=== PATIENT | female | born 1985 | race Caucasian/White ===

== ENCOUNTER 2020-06-27 12:45 | Inpatient (IN) ==
[2020-06-27] MEDS ORDERED: LORazepam 1 MG TAB PO STA (13:07)
--- NOTE | 2020-06-27 13:20 | Emergency Department Note ---
Impression & Plan Depression with suicidal ideation, Drug abuse, Edema ED Provider Note NAME: KANDICE BOOTHE AGE: 35 SEX: F : 1985 ARRIVES VIA: Police [employer] INFORMANT: Patient, the police ED PROVIDER(S): Justin Campuzano DO CHIEF COMPLAINT: Anxiety HPI: The patient is a 35-year-old female who presented to the emergency department with police for mental health evaluation. According to the police the patient had an overdose of opiates last evening requiring Narcan for resuscitation. On scene the patient admitted to some suicidal ideation but ultimately was able to refer use transport after evaluation by EMS. The patient presents back to the emergency department today after further details emerged about what occurred last evening. At this time the patient states she has significant anxiety and depression. She states that she did have suicidal ideation but no longer has suicidal ideation. She states that she is more margarita rned because she has been having intermittent episodes of fever as well as edema in her hands and feet. The patient states that she is not . She denies having any chest pain or cough. She states that she does not have a history of IV drug abuse ever and normally would snort medications in order to obtain a high. She denies having any recent traveling. The patient denies having any chest pain. The patient denies have any recent evaluation by her primary care physician. She was seen in our facility for the intermittent fevers and no specific diagnosis was made. ROS: See above HPI for pertinent positives & negatives. A total of 10 systems reviewed and were otherwise negative. PAST MEDICAL HISTORY: See Below PAST SURGICAL HISTORY: See Below FAMILY HISTORY: See Below SOCIAL HISTORY: See Below HOME MEDICATIONS: See Below ALLERGIES: See Below VITALS: See Below PHYSICAL EXAMINATION: GENERAL: The patient is awake and alert. She is somewhat anxious and guarded appearing. EYES: The conjunctivae are clear. The pupils are round and reactive. EARS, NOSE, MOUTH AND THROAT: The nose is without any evidence of any deformity. NECK: The neck is nontender and supple. RESPIRATORY: Normal respiratory effort is noted there is no evidence of wheezing rhonchi or rales CARDIOVASCULAR: Regular rate and rhythm noted there no murmurs rubs or gallops normal S1 normal S2. GASTROINTESTINAL: The abdomen is soft. Abdomen is nontender. MUSCULOSKELETAL/EXTREMITIES: There is no evidence of gross deformity full range of motion is noted in the hips and shoulders. SKIN: There is no obvious evidence of any rash. Trace pedal edema was noted. NEUROLOGIC: Patient is awake alert and oriented x3 strength is symmetric patellar reflexes are 2+ bilaterally PSYCH: The patient makes good eye contact for most the evaluation. Currently she is denying any suicidal homicidal ideation. She seems somewhat guarded. MEDICAL DECISION MAKING: The patient is a 35-year-old female who presented to the emergency department by police for mental health evaluation. The patient does have a history of drug abuse in the past. She is currently taking Suboxone. She had an episode last evening where she overdosed and was revived using Narcan. The patient at that time refused transport but it became known that the patient was actually having suicidal ideation. She returns to the emergency department today for mental health evaluation. She also complained of some edema. I discussed the patient's laboratory and radiographic studies with her. Ultimately she was medically cleared in the emergency department. She was evaluated by the mental health shoe caser. She was evaluated by 3 S. and was felt to be a good candidate for 201 admission. I did review the 302 petition. Triage Nursing notes reviewed. Prior medical records reviewed Vital Signs: reviewed and remarkable for elevated blood pressure. Differential diagnosis: Mood disorder, infection, hypoglycemia, electrolyte abnormalities, cardiac sources, intracerebral event, toxicologic, trauma, neurologic, as well as other pathologies. ER treatment provided: See below Diagnostics interpreted by me: ECG: EKG was obtained in the emergency department. My interpretation is normal sinus rhythm at 84 bpm. There was no ectopy. There was no acute ST segment abnormalities noted. This was compared to a tracing from May 232020. No significant changes were noted. Laboratory studies: As stated above and show below. Imaging studies: See below Consultation(s): none Past Med/Surg History Medical History Depression with anxiety No chronic diseases present Surgical History Hx of section Social History Smoking Status: Current every day smoker Tobacco Type: Cigarettes Feels Safe at Home: Yes Allergies Allergies Allergy/AdvReac Type Severity Reaction Status Date / Time No Known Allergies Allergy Verified 06/27/20 13:33 Home Meds Home Medications Medication Instructions Recorded Confirmed Suboxone 8 mg BID 06/27/20 06/27/20 Results & Data (ED) Vital Signs Vital Signs - 24 hr 06/27/20 12:58 06/27/20 14:22 06/27/20 15:30 Temperature 37.1 C Temperature Source Oral Pulse Rate 102 H Pulse Rate [Left Finger] 92 H 84 Respiratory Rate 20 18 18 Blood Pressure 157/90 H Blood Pressure [Left Arm] 148/75 H 131/71 Blood Pressure Mean 112 Blood Pressure Mean [Left Arm] 99 91 Blood Pressure Position [Left Arm] Lying Pulse Oximetry 100 98 98 Oxygen Delivery Method Room Air Room Air Nasal Cannula Room Air Nasal Cannula Home Medications Current Medication List: was personally reviewed by me Laboratory Data Attestation: I reviewed the patient's lab results. Result diagrams: 06/27/20 14:29 06/27/20 14:29 Lab Results 06/27/20 06/27/20 06/27/20 Range/Units 14:21 14:21 14:29 WBC (4.8-10.8) K/uL RBC (4.2-5.4) M/uL Hgb (12.0-16.0) g/dL Hct (37-47) % MCV (80-100) fL MCH (25-34) pg MCHC (32-36) g/dL RDW Std Deviation (36.4-46.3) fL RDW Coeff of Mason (11.5-14.5) % Plt Count (130-400) K/uL MPV (7.4-10.4) fL Immature Gran % (Auto) % Neut % (Auto) % Lymph % (Auto) % [place] % (Auto) % Eos % (Auto) % Baso % (Auto) % Neut # (Auto) (1.4-6.5) K/uL Lymph # (Auto) (1.2-3.4) K/uL [place] # (Auto) (0.11-0.59) K/uL Eos # (Auto) (0-0.5) K/uL Baso # (Auto) (0-0.2) K/uL Immature Gran # (Auto) (0.00-0.02) K/uL Sodium 139 (136-145) mmol/L Potassium 3.9 (3.5-5.1) mmol/L Chloride 107 (98-107) mmol/L Carbon Dioxide 27 (21-32) mmol/L Anion Gap 5.0 (3-11) BUN 9 (7-18) mg/dl Creatinine 0.82 (0.6-1.2) mg/dl Est Cr Clr Drug Dosing 92.9 ml/min Est GFR ( Amer) 108.2 Est GFR (Non-Af Amer) 93.4 BUN/Creatinine Ratio 10.6 (10-20) Glucose 82 (70-99) mg/dl Calcium 9.2 (8.5-10.1) mg/dl Total Bilirubin 0.3 (0.2-1) mg/dl AST 22 (15-37) U/L ALT 28 (12-78) U/L Alkaline Phosphatase 66 (45-117) U/L Troponin I < 0.015 (0-0.045) ng/ml Total Protein 7.7 (6.4-8.2) gm/dl Albumin 3.9 (3.4-5.0) gm/dl Globulin 3.8 (2.5-4.0) gm/dl Albumin/Globulin Ratio 1.0 (0.9-2) TSH 0.597 (0.300-4.500) uIu/ml HCG, Qual (Negative) Urine Color Yellow Urine Appearance Clear (Clear) Urine pH 7.0 (4.5-7.5) Ur Specific [place] 1.017 (1.000-1.030) Urine Protein Negative (Negative) Urine Glucose (UA) Negative (Negative) Urine Ketones Trace H (Negative) Urine Blood 1+ H (Negative) Urine Nitrite Negative (Negative) Urine Bilirubin Negative (Negative) Urine Urobilinogen Negative (Negative) Ur Leukocyte Esterase Negative (Negative) Urine WBC (Auto) 1-5 (0-5) /hpf Urine RBC (Auto) 10-30 H (0-4) /hpf U Hyaline Cast (Auto) 1-5 (0-5) /lpf U Epithel Cells (Auto) 20-30 H (0-5) /lpf Urine Bacteria (Auto) Negative (Negative) Salicylates (2.8-20) mg/dl Urine Opiates Screen Pos H (Neg) Ur Methadone, Qual Neg (Neg) Acetaminophen (10-30) ug/ml Urine Barbiturates Neg (Neg) Ur Phencyclidine (PCP) Neg (Neg) U Amphetamin/Meth Scrn Neg (Neg) MDMA (Ecstasy) Screen Neg (Neg) U Benzodiazepines Scrn Neg (Neg) Ur Cocaine Metabolite Pos H (Neg) U Marijuana (THC) Screen Neg (Neg) Ethyl Alcohol mg/dL (0-3) mg/dl COVID-19 Eval Order SARS-CoV-2, RNA, NAAT (NEGATIVE) 06/27/20 06/27/20 06/27/20 Range/Units 14:29 14:29 14:29 WBC 10.61 (4.8-10.8) K/uL RBC 4.31 (4.2-5.4) M/uL Hgb 13.0 (12.0-16.0) g/dL Hct 39.2 (37-47) % MCV 91.0 (80-100) fL MCH 30.2 (25-34) pg MCHC 33.2 (32-36) g/dL RDW Std Deviation 43.8 (36.4-46.3) fL RDW Coeff of Mason 13.2 (11.5-14.5) % Plt Count 304 (130-400) K/uL MPV 9.4 (7.4-10.4) fL Immature Gran % (Auto) 0.2 % Neut % (Auto) 64.6 % Lymph % (Auto) 23.6 % [place] % (Auto) 8.6 % Eos % (Auto) 2.6 % Baso % (Auto) 0.4 % Neut # (Auto) 6.86 H (1.4-6.5) K/uL Lymph # (Auto) 2.50 (1.2-3.4) K/uL [place] # (Auto) 0.91 H (0.11-0.59) K/uL Eos # (Auto) 0.28 (0-0.5) K/uL Baso # (Auto) 0.04 (0-0.2) K/uL Immature Gran # (Auto) 0.02 (0.00-0.02) K/uL Sodium (136-145) mmol/L Potassium (3.5-5.1) mmol/L Chloride (98-107) mmol/L Carbon Dioxide (21-32) mmol/L Anion Gap (3-11) BUN (7-18) mg/dl Creatinine (0.6-1.2) mg/dl Est Cr Clr Drug Dosing ml/min Est GFR ( Amer) Est GFR (Non-Af Amer) BUN/Creatinine Ratio (10-20) Glucose (70-99) mg/dl Calcium (8.5-10.1) mg/dl Total Bilirubin (0.2-1) mg/dl AST (15-37) U/L ALT (12-78) U/L Alkaline Phosphatase (45-117) U/L Troponin I (0-0.045) ng/ml Total Protein (6.4-8.2) gm/dl Albumin (3.4-5.0) gm/dl Globulin (2.5-4.0) gm/dl Albumin/Globulin Ratio (0.9-2) TSH (0.300-4.500) uIu/ml HCG, Qual Negative (Negative) Urine Color Urine Appearance (Clear) Urine pH (4.5-7.5) Ur Specific [place] (1.000-1.030) Urine Protein (Negative) Urine Glucose (UA) (Negative) Urine Ketones (Negative) Urine Blood (Negative) Urine Nitrite (Negative) Urine Bilirubin (Negative) Urine Urobilinogen (Negative) Ur Leukocyte Esterase (Negative) Urine WBC (Auto) (0-5) /hpf Urine RBC (Auto) (0-4) /hpf U Hyaline Cast (Auto) (0-5) /lpf U Epithel Cells (Auto) (0-5) /lpf Urine Bacteria (Auto) (Negative) Salicylates 2.8 (2.8-20) mg/dl Urine Opiates Screen (Neg) Ur Methadone, Qual (Neg) Acetaminophen < 2 L (10-30) ug/ml Urine Barbiturates (Neg) Ur Phencyclidine (PCP) (Neg) U Amphetamin/Meth Scrn (Neg) MDMA (Ecstasy) Screen (Neg) U Benzodiazepines Scrn (Neg) Ur Cocaine Metabolite (Neg) U Marijuana (THC) Screen (Neg) Ethyl Alcohol mg/dL (0-3) mg/dl COVID-19 Eval Order SARS-CoV-2, RNA, NAAT (NEGATIVE) 06/27/20 06/27/20 06/27/20 Range/Units 14:29 16:43 16:43 WBC (4.8-10.8) K/uL RBC (4.2-5.4) M/uL Hgb (12.0-16.0) g/dL Hct (37-47) % MCV (80-100) fL MCH (25-34) pg MCHC (32-36) g/dL RDW Std Deviation (36.4-46.3) fL RDW Coeff of Mason (11.5-14.5) % Plt Count (130-400) K/uL MPV (7.4-10.4) fL Immature Gran % (Auto) % Neut % (Auto) % Lymph % (Auto) % [place] % (Auto) % Eos % (Auto) % Baso % (Auto) % Neut # (Auto) (1.4-6.5) K/uL Lymph # (Auto) (1.2-3.4) K/uL [place] # (Auto) (0.11-0.59) K/uL Eos # (Auto) (0-0.5) K/uL Baso # (Auto) (0-0.2) K/uL Immature Gran # (Auto) (0.00-0.02) K/uL Sodium (136-145) mmol/L Potassium (3.5-5.1) mmol/L Chloride (98-107) mmol/L Carbon Dioxide (21-32) mmol/L Anion Gap (3-11) BUN (7-18) mg/dl Creatinine (0.6-1.2) mg/dl Est Cr Clr Drug Dosing ml/min Est GFR ( Amer) Est GFR (Non-Af Amer) BUN/Creatinine Ratio (10-20) Glucose (70-99) mg/dl Calcium (8.5-10.1) mg/dl Total Bilirubin (0.2-1) mg/dl AST (15-37) U/L ALT (12-78) U/L Alkaline Phosphatase (45-117) U/L Troponin I (0-0.045) ng/ml Total Protein (6.4-8.2) gm/dl Albumin (3.4-5.0) gm/dl Globulin (2.5-4.0) gm/dl Albumin/Globulin Ratio (0.9-2) TSH (0.300-4.500) uIu/ml HCG, Qual (Negative) Urine Color Urine Appearance (Clear) Urine pH (4.5-7.5) Ur Specific [place] (1.000-1.030) Urine Protein (Negative) Urine Glucose (UA) (Negative) Urine Ketones (Negative) Urine Blood (Negative) Urine Nitrite (Negative) Urine Bilirubin (Negative) Urine Urobilinogen (Negative) Ur Leukocyte Esterase (Negative) Urine WBC (Auto) (0-5) /hpf Urine RBC (Auto) (0-4) /hpf U Hyaline Cast (Auto) (0-5) /lpf U Epithel Cells (Auto) (0-5) /lpf Urine Bacteria (Auto) (Negative) Salicylates (2.8-20) mg/dl Urine Opiates Screen (Neg) Ur Methadone, Qual (Neg) Acetaminophen (10-30) ug/ml Urine Barbiturates (Neg) Ur Phencyclidine (PCP) (Neg) U Amphetamin/Meth Scrn (Neg) MDMA (Ecstasy) Screen (Neg) U Benzodiazepines Scrn (Neg) Ur Cocaine Metabolite (Neg) U Marijuana (THC) Screen (Neg) Ethyl Alcohol mg/dL < 3.0 (0-3) mg/dl COVID-19 Eval [facility] SARS-CoV-2, RNA, NAAT NEGATIVE (NEGATIVE) Administered Medications Discontinued Medications Acetaminophen (Acetaminophen 500 Mg Tab) 1,000 mg PO NOW STA Stop: 06/27/20 14:22 Last Admin: 06/27/20 14:25 Dose: 1,000 mg Documented by: [id number] Lorazepam (Lorazepam 1 Mg Tab) 1 mg PO NOW STA Stop: 06/27/20 13:08 Last Admin: 06/27/20 13:20 Dose: 1 mg Documented by: [id number] Imaging Data Radiologist's Impression: Patient: KANDICE BOOTHE Admit Date: 06/27/20 MR#: [id number] Address1: [address] [place] [address] Acct ID:[id number] Address2: Date: 1985 [facility] Zip: [place] [address] Age: 35 Location: ED Sex: F Room/Bed: Att Phy: Diagnosis: MHE Erika Phy: PCP,NO Service Date: 06/27/20 Fam Phy: Interpreting Phy: Hugo Gray Admit Phy: Ordering Phy: Justin Campuzano, DO cc: ~ XR chest 1V portable HISTORY: 35 years-old Female cleaarance screening study. No acute chest complaints reported. COMPARISON: Chest radiograph and CTA chest 05/23/2020 TECHNIQUE: Portable AP view of the chest FINDINGS: Cardiomediastinal and hilar silhouettes are within normal limits. No p neumothorax, pleural effusion or overt pulmonary edema. Mild bibasilar opacities are likely secondary to summation density from the patient's breasts. Bones appear normal. IMPRESSION: No acute process. ACT 112: Negative or not required by law. The above report was generated using voice recognition software. It may contain grammatical, syntax or spelling errors. Electronically signed by: Diego Gray M.D. 06/27/2020 1:30 PM Dictated: 06/27/20 1328 Transcribed: 06/27/20 1328 Discharge Plan Visit Data Chief Complaint: Mental Health Evaluation ED Provider: Justin Campuzano Discharge Problem: Depression with suicidal ideation, Drug abuse, Edema Prescriptions Prescriptions: No Action Suboxone tablet 8 mg BID RF: 0
--- NOTE | 2020-06-27 13:31 | XRay Report ---
XR chest 1V portable HISTORY: 35 years-[facility] No acute chest complaints reported. COMPARISON: Chest radiograph and CTA chest 05/23/2020 TECHNIQUE: Portable AP view of the chest FINDINGS: Cardiomediastinal and hilar silhouettes are within normal limits. No pneumothorax, pleural effusion o r overt pulmonary edema. Mild bibasilar opacities are likely secondary to summation density from the patient's breasts. Bones appear normal. IMPRESSION: No acute process. ACT 112: Negative or not required by law. The above report was generated using voice recognition software. It may contain grammatical, syntax o r spelling errors. Electronically signed by: Diego Gray M.D. 06/27/2020 1:30 PM
[2020-06-27] MEDS ORDERED: ACETAMINOPHEN 500 MG TAB PO STA (14:21)
[2020-06-27 14:34] LABS: Appearance Urine Clear (Clear); Bacteria Urine Automated Negative (Negative); Bilirubin Urine Negative (Negative); Blood Urine 1+ (Negative); Color Urine Yellow; Epithelial Cell Urine Auto 20-30 /lpf (0-5); Glucose Urine UA Negative (Negative); Ketones Urine Trace (Negative); Leukocyte Esterase Urine Negative (Negative); Nitrite Urine Negative (Negative); Protein Urine Negative (Negative); Specific Gravity Urine 1.017 (1.000-1.030); Urobilinogen Urine Negative (Negative)
[2020-06-27 14:47] LABS: Basophils # (auto) 0.04 K/uL (0-0.2); Basophils % (auto) 0.4 %; Eosinophils # (auto) 0.28 K/uL (0-0.5); Eosinophils % (auto) 2.6 %; Hematocrit (blood only) 39.2 % (37-47); Immature Granulocytes # (auto) 0.02 K/uL (0.00-0.02); Immature Granulocytes % (auto) 0.2 %; Lymphocytes % (auto) 23.6 %; Mean Corpuscular Hemoglobin 30.2 pg (25-34); Mean Corpuscular Hgb Conc 33.2 g/dL (32-36); Mean Platelet Volume 9.4 fL (7.4-10.4); Monocytes # (auto) 0.91 K/uL (0.11-0.59); Monocytes % (auto) 8.6 %; Neutrophils # (auto) 6.86 K/uL (1.4-6.5); Neutrophils % (auto) 64.6 %; Platelet Count 304 K/uL (130-400); RDW Coefficient of Variation 13.2 % (11.5-14.5); RDW Standard Deviation 43.8 fL (36.4-46.3); Red Blood Count 4.31 M/uL (4.2-5.4); White Blood Count 10.61 K/uL (4.8-10.8)
[2020-06-27 15:02] LABS: Alanine Aminotransferase 28 U/L (12-78); Albumin Level 3.9 gm/dl (3.4-5.0); Aspartate Aminotransferase 22 U/L (15-37); BUN Creatinine Ratio 10.6 (10-20); Blood Urea Nitrogen 9 mg/dl (7-18); Calcium 9.2 mg/dl (8.5-10.1); Carbon Dioxide 27 mmol/L (21-32); Chloride 107 mmol/L (98-107); Creatinine Clr Calc Pharmacy 92.9 ml/min; Est GFR (African American) 108.2; Est GFR (Non-African American) 93.4; Glucose 82 mg/dl (70-99); Potassium 3.9 mmol/L (3.5-5.1); Sodium 139 mmol/L (136-145)
[2020-06-27 15:11] LABS: Amphetamines+Metham, Urine Neg (Neg); Barbiturates, Urine Neg (Neg); Benzodiazepine, Urine Neg (Neg); Cocaine, Urine Pos (Neg); MDMA (Ecstacy), Urine Neg (Neg); Methadone, Urine Neg (Neg); Opiate, Urine Pos (Neg); Phencyclidine, Urine Neg (Neg)
[2020-06-27 15:12] LABS: Alkaline Phosphatase 66 U/L (45-117); Bilirubin,Total 0.3 mg/dl (0.2-1); Globulin 3.8 gm/dl (2.5-4.0); Thyroid Stimulating Hormone 0.597 uIu/ml (0.300-4.500); Total Protein 7.7 gm/dl (6.4-8.2); Troponin I < 0.015 ng/ml (0-0.045)
[2020-06-27 15:13] LABS: Pregnancy Test, Serum Negative (Negative)
[2020-06-27 15:38] LABS: Acetaminophen < 2 ug/ml (10-30); Salicylate 2.8 mg/dl (2.8-20)
[2020-06-27] MEDS ORDERED: ALUMINUM/MAGNESIUM SUSP 30 ML UDC PO PRN (18:23)
[2020-06-27] MEDS ORDERED: SODIUM CHLORIDE 0.65% NA SOLN 45 ML (OCEAN) PRN (18:23)
[2020-06-27] MEDS ORDERED: ACETAMINOPHEN 325 MG TAB PO PRN (18:23)
[2020-06-27] MEDS ORDERED: BISMUTH SUBSALICYLATE LIQD 236 ML PO PRN (18:23)
[2020-06-27] MEDS ORDERED: MAGNESIUM HYDROXIDE SUSP 30 ML UDC PO PRN (18:23)
[2020-06-27] MEDS ORDERED: cloNIDine HCL 0.1 MG TAB PO PRN (18:25)
[2020-06-27] MEDS ORDERED: DIPHENOXYLATE/ATROPINE 2.5/0.025MG TAB PO PRN (18:25)
[2020-06-27] MEDS ORDERED: IBUPROFEN 600 MG TAB PO STA (18:46)
[2020-06-27] MEDS: hydrOXYzine HCl 25 MG TAB PO PRN ×2 (19:38→20:59)
--- NOTE | 2020-06-27 22:30 | Electrocardiogram Report ---
Test Reason : Blood Pressure : / mmHG Vent. Rate : 084 BPM Atrial Rate : 084 BPM P-R Int : 136 ms QRS Dur : 084 ms QT Int : 380 ms P-R-T Axes : 061 061 047 degrees QTc Int : 449 ms Normal sinus rhythm Normal ECG When compared with ECG of 23-MAY-2020 12:03, No significant change was found Confirmed by Daniel Monroe ([id number]) on 06/27/2020 10:29:50 PM Referred By: REFERRED SELF Confirmed By:Daniel Monroe
--- NOTE | 2020-06-28 12:57 | History & Physical ---
Date of Service June 28, 2020 Impression / Recommendations Impression 35 yo female with a history of opiate dependence admit on 201 approximately 24 hours after an opiate OD, there are verying accounts as to what degree it was a suicidal gesture and although she has signed a 72 hr notice, she needs continued monitoring to establish history, restart suboxone safety, and safety plan which includes confirming CYS issues with regards to children. She was felt to be high risk given family history of suicide, substance use hx, and son's hearing on rather serious charges. (1) Depressive disorder: The patient was admitted to the [facility] ([facility]) on q15 min checks (behavioral with suicide precautions) for safety. The patient will participate in group, recreational, and milieu therapies and will be offered additional individual and family sessions as clinically appropriate. Additional history will need to be obtain re: her mood and functioning prior to OD. (2) Opiate dependence: reviewed with patient that Suboxone is generally restarted 36 hrs + following last use or with withdrawal symptoms after, often lower dose to ensure not precipitate withdrawal. Clonidine and lomotil prn. Denies symptoms at this time. Will start suboxone 4/1 mg tonight and advance to home dose after 2 doses as tolerated. dosing confirmed with PDMP ([place] provider). Inventory Assets Strengths: established with Mauro, period of sobriety of 2 1/2 years Needs: social work case manager, confirm therapy Risk Factors Assessment : Yes Do You Have Access To A Gun?: No Substance Use Disorders: Yes Family History of Suicide: Yes Smoker: Yes Protective Factors Assessment : No Responsible for Young Children: Yes Employed: No Stable Relationships: No Psychiatric History Identifying Data KANDICE BOOTHE is a 35-year-old F with a history of opiate dependence presents to ED on 302 warrant by police morning after an intentional heroin OD on 06/26/20. She was admitted 06/27/20 18:23 on a 201 voluntary commitment but has since signed a 72 hour notice. Chief Complaint "It was stupid, I don't need to be here, now get out". History of Present Illness Patient is rather uncooperative with history this am attributing it to poor sleep. She admits taking "a bunch" (using 5 bags) of heroin was intentional but denies she was suicidal prior or that it was a true suicide attempt. She states that she felt suicidal because "I messed up my sobriety". She also used cocaine with the "dope". Apparently 15 yo son was involved in notifying EMS and she declined to go for exam/with police followng Narcan. Apparently any suicidal statements made while intoxicated weren't considered immediate threat. She followed up with her case finisher the next day by phone and a 302 petition was initiated based on report of OD. ED contacted CYS last night. She states he has a hearing on 07/01 (sentencing for ?armed robbery). She states it's "ridiculous I have to deal with this now" but clearly also reviewed as a stressor. [place] [facility] [place] case finisher was apparently involved in finding emergency care for children. The patient has boyfriend who is 14 years senior who lives several hours away yet still refers to him as controlling. She restates that she only wanted to get seen for hand and feet swelling, unclear if following narcan, but is resolving. Past Psychiatric History Previous Psych History: patient uncooperative. Current Psychiatric Diagnosis: depression NOS Previous Psych Admissions: denied Do You Have Access To A Gun?: No Past Medication Trials: unable to obtain Allergies Allergy/AdvReac Type Severity Reaction Status Date / Time No Known Allergies Allergy Verified 06/27/20 13:33 Home Medications Medication Instructions Recorded Confirmed Type Suboxone 8 mg BID 06/27/20 06/27/20 History Family History Family History of: Anxiety and Suicide Completion Family Mental Health History Comment: grandmother completed suicide son has anxiety Alcohol History Hx of Alcohol Use Over the Past 12 Months: Yes (once or twice a week; one or 2 drinks) AUDIT Total Score: 3 Smoking Use Have You Smoked or Used Tobacco Products in the Last 30 Days: Yes tobacco type: cigarettes Smoking Status: Current every day smoker Smoking packs per day: 0.5 Substance History Hx of Prescription Med Misuse Over the Past 12 Months: No Hx of Over the Counter Med Misuse Over the Past 12 Months: No Hx of Inhalent Misuse Over the Past 12 Months: No Hx of Organic Substance Use Over the Past 12 Months: Yes Hx of Illegal Substances/Street Drug Use Over Past 12 Months: Yes Problems as a Result of Past Substance Use: Attempted Suicide Problems as a Result of Past Substance Use Comments: overdosed on Heroin 06/26; EMS gave Narcan Personal History Living Arrangements: Apartment Employment Status: Unknown Marital Status: Single Beliefs That Will Affect Care: None Patient History Medical History Depression with anxiety No chronic diseases present Surgical History Hx of section Social History Smoking Status: Current every day smoker Tobacco Type: Cigarettes Preferred Language: [place] Communication Ability: Effective Residential Installer Required: No Beliefs That Will Affect Care: None Feels Safe at Home: Yes Assistive Devices: None Review of Systems Review of Systems: All systems reviewed & are unremarkable except as noted in HPI & below Physical Exam Psychiatric: Orientation: alert and + guarded Apperance: + disheveled Eye Contact: + poor eye contact Motor Behavior: no abnormal motor movements Speech: normal rate/rhythm/volume of speech Affect: + irritable affect Mood: + irritable mood Thought Process: + concrete thought process Thought Content: reality based without delusions Suicidal Thoughts: denies suicidal thoughts Homicidal Thoughts: denies homicidal thoughts Hallucinations: no auditory hallucinations and no visual hallucinations Cognition: + attention not intact Insight: + poor insight Judgement: + poor judgement Vital Signs (Past 24 Hours): Last Vital Signs Temp 36.7 C 06/28/20 06:26 Pulse 63 06/28/20 06:26 Resp 18 06/28/20 06:26 BP 115/65 06/28/20 06:26 Pulse Ox 99 06/27/20 21:30 Exam Statement: A physical exam was performed in the ED by Dr. Campuzano for the p urposes of medical clearance. I accept that physical as correct and adequate for the purposes of the inpatient physical exam. Results & Data ([facility]) Laboratory Results Laboratory Results - last 24 hr 06/27/20 06/27/20 06/27/20 14:21 14:21 14:21 WBC RBC Hgb Hct MCV MCH MCHC RDW Std Deviation RDW Coeff of Mason Plt Count MPV Immature Gran % (Auto) Neut % (Auto) Lymph % (Auto) [place] % (Auto) Eos % (Auto) Baso % (Auto) Neut # (Auto) Lymph # (Auto) [place] # (Auto) Eos # (Auto) Baso # (Auto) Immature Gran # (Auto) Sodium Potassium Chloride Carbon Dioxide Anion Gap BUN Creatinine Est Cr Clr Drug Dosing Est GFR ( Amer) Est GFR (Non-Af Amer) BUN/Creatinine Ratio Glucose Calcium Total Bilirubin AST ALT Alkaline Phosphatase Troponin I Total Protein Albumin Globulin Albumin/Globulin Ratio TSH HCG, Qual Urine Color Yellow Urine Appearance Clear Urine pH 7.0 Ur Specific [place] 1.017 Urine Protein Negative Urine Glucose (UA) Negative Urine Ketones Trace H Urine Blood 1+ H Urine Nitrite Negative Urine Bilirubin Negative Urine Urobilinogen Negative Ur Leukocyte Esterase Negative Urine WBC (Auto) 1-5 Urine RBC (Auto) 10-30 H U Hyaline Cast (Auto) 1-5 U Epithel Cells (Auto) 20-30 H Urine Bacteria (Auto) Negative Salicylates Urine Opiates Screen Pos H U Codeine Confrm GC/MS Pending Ur Morphine (GC/MS) Pending Ur Hydrocodone (GC/MS) Pending Ur Norhydrocodone Pending Ur Noroxycodone Pending Urine Oxycodone (GC/MS) Pending U Oxymorphone GC/MS Pending Ur Methadone, Qual Neg Ur Hydromorphone (GC/MS) Pending Acetaminophen Urine Barbiturates Neg Ur Phencyclidine (PCP) Neg U Amphetamin/Meth Scrn Neg MDMA (Ecstasy) Screen Neg U Benzodiazepines Scrn Neg U Cocaine Confirm GC/MS Pending Ur Cocaine Metabolite Pos H U Marijuana (THC) Screen Neg Drug Screen Comment Pending Ethyl Alcohol mg/dL COVID-19 Eval Order SARS-CoV-2, RNA, NAAT 06/27/20 06/27/20 06/27/20 14:29 14:29 14:29 WBC 10.61 RBC 4.31 Hgb 13.0 Hct 39.2 MCV 91.0 MCH 30.2 MCHC 33.2 RDW Std Deviation 43.8 RDW Coeff of Mason 13.2 Plt Count 304 MPV 9.4 Immature Gran % (Auto) 0.2 Neut % (Auto) 64.6 Lymph % (Auto) 23.6 [place] % (Auto) 8.6 Eos % (Auto) 2.6 Baso % (Auto) 0.4 Neut # (Auto) 6.86 H Lymph # (Auto) 2.50 [place] # (Auto) 0.91 H Eos # (Auto) 0.28 Baso # (Auto) 0.04 Immature Gran # (Auto) 0.02 Sodium 139 Potassium 3.9 Chloride 107 Carbon Dioxide 27 Anion Gap 5.0 BUN 9 Creatinine 0.82 Est Cr Clr Drug Dosing 92.9 Est GFR ( Amer) 108.2 Est GFR (Non-Af Amer) 93.4 BUN/Creatinine Ratio 10.6 Glucose 82 Calcium 9.2 Total Bilirubin 0.3 AST 22 ALT 28 Alkaline Phosphatase 66 Troponin I < 0.015 Total Protein 7.7 Albumin 3.9 Globulin 3.8 Albumin/Globulin Ratio 1.0 TSH 0.597 HCG, Qual Negative Urine Color Urine Appearance Urine pH Ur Specific [place] Urine Protein Urine Glucose (UA) Urine Ketones Urine Blood Urine Nitrite Urine Bilirubin Urine Urobilinogen Ur Leukocyte Esterase Urine WBC (Auto) Urine RBC (Auto) U Hyaline Cast (Auto) U Epithel Cells (Auto) Urine Bacteria (Auto) Salicylates Urine Opiates Screen U Codeine Confrm GC/MS Ur Morphine (GC/MS) Ur Hydrocodone (GC/MS) Ur Norhydrocodone Ur Noroxycodone Urine Oxycodone (GC/MS) U Oxymorphone GC/MS Ur Methadone, Qual Ur Hydromorphone (GC/MS) Acetaminophen Urine Barbiturates Ur Phencyclidine (PCP) U Amphetamin/Meth Scrn MDMA (Ecstasy) Screen U Benzodiazepines Scrn U Cocaine Confirm GC/MS Ur Cocaine Metabolite U Marijuana (THC) Screen Drug Screen Comment Ethyl Alcohol mg/dL COVID-19 Eval Order SARS-CoV-2, RNA, NAAT 06/27/20 06/27/20 06/27/20 14:29 14:29 16:43 WBC RBC Hgb Hct MCV MCH MCHC RDW Std Deviation RDW Coeff of Mason Plt Count MPV Immature Gran % (Auto) Neut % (Auto) Lymph % (Auto) [place] % (Auto) Eos % (Auto) Baso % (Auto) Neut # (Auto) Lymph # (Auto) [place] # (Auto) Eos # (Auto) Baso # (Auto) Immature Gran # (Auto) Sodium Potassium Chloride Carbon Dioxide Anion Gap BUN Creatinine Est Cr Clr Drug Dosing Est GFR ( Amer) Est GFR (Non-Af Amer) BUN/Creatinine Ratio Glucose Calcium Total Bilirubin AST ALT Alkaline Phosphatase Troponin I Total Protein Albumin Globulin Albumin/Globulin Ratio TSH HCG, Qual Urine Color Urine Appearance Urine pH Ur Specific [place] Urine Protein Urine Glucose (UA) Urine Ketones Urine Blood Urine Nitrite Urine Bilirubin Urine Urobilinogen Ur Leukocyte Esterase Urine WBC (Auto) Urine RBC (Auto) U Hyaline Cast (Auto) U Epithel Cells (Auto) Urine Bacteria (Auto) Salicylates 2.8 Urine Opiates Screen U Codeine Confrm GC/MS Ur Morphine (GC/MS) Ur Hydrocodone (GC/MS) Ur Norhydrocodone Ur Noroxycodone Urine Oxycodone (GC/MS) U Oxymorphone GC/MS Ur Methadone, Qual Ur Hydromorphone (GC/MS) Acetaminophen < 2 L Urine Barbiturates Ur Phencyclidine (PCP) U Amphetamin/Meth Scrn MDMA (Ecstasy) Screen U Benzodiazepines Scrn U Cocaine Confirm GC/MS Ur Cocaine Metabolite U Marijuana (THC) Screen Drug Screen Comment Ethyl Alcohol mg/dL < 3.0 COVID-19 Eval [facility] SARS-CoV-2, RNA, NAAT 06/27/20 16:43 WBC RBC Hgb Hct MCV MCH MCHC RDW Std Deviation RDW Coeff of Mason Plt Count MPV Immature Gran % (Auto) Neut % (Auto) Lymph % (Auto) [place] % (Auto) Eos % (Auto) Baso % (Auto) Neut # (Auto) Lymph # (Auto) [place] # (Auto) Eos # (Auto) Baso # (Auto) Immature Gran # (Auto) Sodium Potassium Chloride Carbon Dioxide Anion Gap BUN Creatinine Est Cr Clr Drug Dosing Est GFR ( Amer) Est GFR (Non-Af Amer) BUN/Creatinine Ratio Glucose Calcium Total Bilirubin AST ALT Alkaline Phosphatase Troponin I Total Protein Albumin Globulin Albumin/Globulin Ratio TSH HCG, Qual Urine Color Urine Appearance Urine pH Ur Specific [place] Urine Protein Urine Glucose (UA) Urine Ketones Urine Blood Urine Nitrite Urine Bilirubin Urine Urobilinogen Ur Leukocyte Esterase Urine WBC (Auto) Urine RBC (Auto) U Hyaline Cast (Auto) U Epithel Cells (Auto) Urine Bacteria (Auto) Salicylates Urine Opiates Screen U Codeine Confrm GC/MS Ur Morphine (GC/MS) Ur Hydrocodone (GC/MS) Ur Norhydrocodone Ur Noroxycodone Urine Oxycodone (GC/MS) U Oxymorphone GC/MS Ur Methadone, Qual Ur Hydromorphone (GC/MS) Acetaminophen Urine Barbiturates Ur Phencyclidine (PCP) U Amphetamin/Meth Scrn MDMA (Ecstasy) Screen U Benzodiazepines Scrn U Cocaine Confirm GC/MS Ur Cocaine Metabolite U Marijuana (THC) Screen Drug Screen Comment Ethyl Alcohol mg/dL COVID-19 Eval Order SARS-CoV-2, RNA, NAAT NEGATIVE Current Inpatient Medications Current Inpatient Medications: Current Inpatient Medications Acetaminophen (Acetaminophen 325 Mg Tab) 650 mg PO Q4H PRN PRN Reason: Headache or Minor Fever Stop: 07/27/20 18:22 Al Hydrox/Mg Hydrox/Simethicone (Aluminum/Magnesium Susp 30 Ml Udc) 30 ml PO Q4H PRN PRN Reason: GI Upset Stop: 07/27/20 18:22 Bismuth Subsalicylate (Bismuth Subsalicylate Liqd 236 Ml) 15 ml PO PRN PRN PRN Reason: Loose Stool Stop: 07/27/20 18:22 Buprenorphine/Naloxone (Buprenorphine/Naloxone 2/0.5mg 1 Tab) 2 tab PO BID YOLA Stop: 07/28/20 20:59 Clonidine HCl (Clonidine Hcl 0.1 Mg Tab) 0.1 mg PO Q2H PRN PRN Reason: For any 2 symptoms Stop: 07/27/20 18:24 Diphenoxylate HCl/Atropine (Diphenoxylate/Atropine 2.5/0.025mg Tab) 1 tab PO Q4H PRN PRN Reason: Abdomincal cramping/diarrhea Stop: 07/27/20 18:24 Hydroxyzine HCl (Hydroxyzine Hcl 25 Mg Tab) 50 mg PO HSZ PRN PRN Reason: Insomnia Stop: 07/27/20 18:22 Last Admin: 06/27/20 20:59 Dose: 50 mg Documented by: Hydroxyzine HCl (Hydroxyzine Hcl 25 Mg Tab) 25 mg PO Q4H PRN PRN Reason: Anxiety Stop: 07/27/20 18:22 Last Admin: 06/27/20 19:38 Dose: 25 mg Documented by: Magnesium Hydroxide (Magnesium Hydroxide Susp 30 Ml Udc) 30 ml PO DAILY PRN PRN Reason: Constipation Stop: 07/27/20 18:22 Sodium Chloride (Sodium Chloride 0.65% Na Soln 45 Ml ([place])) 1 - 2 sprays NA PRN PRN PRN Reason: Nasal Dryness/Congestion Stop: 07/27/20 18:22
[2020-06-28] MEDS: hydrOXYzine HCl 25 MG TAB PO PRN ×2 (16:04→21:41)
[2020-06-28] MEDS: BUPRENORPHINE/NALOXONE 2/0.5MG 1 TAB PO SCH (20:21)
[2020-06-29] MEDS: BUPRENORPHINE/NALOXONE 2/0.5MG 1 TAB PO SCH (08:40)
--- NOTE | 2020-06-29 11:05 | Discharge Summary ---
Date of Service June 29, 2020 History of Present Illness Upon admission: Patient is rather uncooperative with history this am attributing it to poor sleep. She admits taking "a bunch" (using 5 bags) of heroin was intentional but denies she was suicidal prior or that it was a true suicide attempt. She states that she felt suicidal because "I messed up my sobriety". She also used cocaine with the "dope". Apparently 15 yo son was involved in notifying EMS and she declined to go for exam/with police followng Narcan. Apparently any suicidal statements made while intoxicated weren't considered immediate threat. She followed up with her senior case manager the next day by phone and a 302 petition was initiated based on report of OD. ED contacted [facility] last night. She states he has a hearing on 07/01 (sentencing for ?armed robbery). She states it's "ridiculous I have to deal with this now" but clearly also reviewed as a stressor. [facility] senior case manager was apparently involved in finding emergency care for children. The patient has boyfriend who is 14 years senior who lives several hours away yet still refers to him as controlling. She restates that she only wanted to get seen for hand and feet swelling, unclear if following narcan, but is resolving. Physical Exam Mental Examination See admission H&P and DOD summary. Vital Signs (Past 24 Hours) Last Vital Signs Temp 36.5 C 06/29/20 09:58 Pulse 69 06/29/20 09:58 Resp 17 06/29/20 09:58 BP 112/76 06/29/20 09:58 Pulse Ox 99 06/29/20 09:58 Principal Diagnosis unspecified depressive disorder Psychiatric Data See daily stay summary. In short, safety was maintained and the patient was cooperative with care. She signed a 72 hour notice yesterday requesting to withdraw from care. Suboxone was restarted and they tolerated this well. A safety plan was completed prior to discharge and social work confirmed supports. Day of Discharge Assessment Alice is much more cooperative today. She was apologetic and reports that she was angry with herself and also didn't want hospitalization as her teenage son will be sentenced tomorrow on a serious charge. She is still requesting discharge to be able to communicate with his tax attorney in preparation. Reviewed my concerns that she gave varying reports of her suicidal intent to different reporters. She admitted that she did not tell the ED that she had been using for 3 days leading up to purchasing the 5 bags and although she did not want to , in an impulsive moment while intoxicated on cocaine and heroin she had a "fuck it" moment. She reports she didn't want to get in trouble for use given involvement of CYS and son's court issues. She has consistently reported that this week was first use in 2 1/2 years. She denies having a stash at home. Her friend who has emergency care of children is comfortable with her seeing kids under her supervision. The family has already been referred to [facility]. The patient is future focussed with regards to cleaning their apartment and states that she can cope with whatever happens with her son in court tomorrow as "I don't want him put away but maybe that is what has to happen". "I want to focus on my girls" and agrees to see D&A counseling in addition to suboxone clinic on her own (resources provided by social work). Alice was initially irritable but there was been no evidence of madelaine, ongoing intoxication/withdrawal delirium, or psychosis impacting her medical decision making. Given lack of primary mood or psychotic disorder, she does not meet involuntary commitment criteria under [place] mental health law as to best of our history taking she was intoxicated at the time of the thoughts. Certainly relapse was poor judgement and ideally would participate in additional treatment but she understands that our advice is she remains hospitalized but ongoing hospitalization and inability to see her son and participate in his hearing when likely being placed would be more stressful than therapeutic for patient. Advance Directives Advance Directives Information Provided: Yes Advance Directives: No Mental Health Advance Directive: No Advance Directives on File: No Living Will: No Power of Adult Ministries Director: No Advance Directives Reason:: Declines as Mental Health Visit. Risk Factors Assessment : Yes Do You Have Access To A Gun?: No Substance Use Disorders: Yes Family History of Suicide: Yes Smoker: Yes Protective Factors Assessment : No Responsible for Young Children: Yes Employed: No Stable Relationships: No Tobacco Cessation at Discharge Tobacco Cessation Medication Prescribed at Discharge: Offered & Pt Refused Discharge Data Lab Results 06/27/20 06/27/20 06/27/20 14:21 14:21 14:29 WBC RBC Hgb Hct MCV MCH MCHC RDW Std Deviation RDW Coeff of Mason Plt Count MPV Immature Gran % (Auto) Neut % (Auto) Lymph % (Auto) Caroline % (Auto) Eos % (Auto) Baso % (Auto) Neut # (Auto) Lymph # (Auto) Caroline # (Auto) Eos # (Auto) Baso # (Auto) Immature Gran # (Auto) Sodium 139 Potassium 3.9 Chloride 107 Carbon Dioxide 27 Anion Gap 5.0 BUN 9 Creatinine 0.82 Est Cr Clr Drug Dosing 92.9 Est GFR ( Amer) 108.2 Est GFR (Non-Af Amer) 93.4 BUN/Creatinine Ratio 10.6 Glucose 82 Calcium 9.2 Total Bilirubin 0.3 AST 22 ALT 28 Alkaline Phosphatase 66 Troponin I < 0.015 Total Protein 7.7 Albumin 3.9 Globulin 3.8 Albumin/Globulin Ratio 1.0 TSH 0.597 HCG, Qual Urine Color Yellow Urine Appearance Clear Urine pH 7.0 Ur Specific [place] 1.017 Urine Protein Negative Urine Glucose (UA) Negative Urine Ketones Trace H Urine Blood 1+ H Urine Nitrite Negative Urine Bilirubin Negative Urine Urobilinogen Negative Ur Leukocyte Esterase Negative Urine WBC (Auto) 1-5 Urine RBC (Auto) 10-30 H U Hyaline Cast (Auto) 1-5 U Epithel Cells (Auto) 20-30 H Urine Bacteria (Auto) Negative Salicylates Urine Opiates Screen Pos H Ur Methadone, Qual Neg Acetaminophen Urine Barbiturates Neg Ur Phencyclidine (PCP) Neg U Amphetamin/Meth Scrn Neg MDMA (Ecstasy) Screen Neg U Benzodiazepines Scrn Neg Ur Cocaine Metabolite Pos H U Marijuana (THC) Screen Neg Ethyl Alcohol mg/dL COVID-19 Eval Order SARS-CoV-2, RNA, NAAT 06/27/20 06/27/20 06/27/20 14:29 14:29 14:29 WBC 10.61 RBC 4.31 Hgb 13.0 Hct 39.2 MCV 91.0 MCH 30.2 MCHC 33.2 RDW Std Deviation 43.8 RDW Coeff of Mason 13.2 Plt Count 304 MPV 9.4 Immature Gran % (Auto) 0.2 Neut % (Auto) 64.6 Lymph % (Auto) 23.6 Caroline % (Auto) 8.6 Eos % (Auto) 2.6 Baso % (Auto) 0.4 Neut # (Auto) 6.86 H Lymph # (Auto) 2.50 Caroline # (Auto) 0.91 H Eos # (Auto) 0.28 Baso # (Auto) 0.04 Immature Gran # (Auto) 0.02 Sodium Potassium Chloride Carbon Dioxide Anion Gap BUN Creatinine Est Cr Clr Drug Dosing Est GFR ( Amer) Est GFR (Non-Af Amer) BUN/Creatinine Ratio Glucose Calcium Total Bilirubin AST ALT Alkaline Phosphatase Troponin I Total Protein Albumin Globulin Albumin/Globulin Ratio TSH HCG, Qual Negative Urine Color Urine Appearance Urine pH Ur Specific [place] Urine Protein Urine Glucose (UA) Urine Ketones Urine Blood Urine Nitrite Urine Bilirubin Urine Urobilinogen Ur Leukocyte Esterase Urine WBC (Auto) Urine RBC (Auto) U Hyaline Cast (Auto) U Epithel Cells (Auto) Urine Bacteria (Auto) Salicylates 2.8 Urine Opiates Screen Ur Methadone, Qual Acetaminophen < 2 L Urine Barbiturates Ur Phencyclidine (PCP) U Amphetamin/Meth Scrn MDMA (Ecstasy) Screen U Benzodiazepines Scrn Ur Cocaine Metabolite U Marijuana (THC) Screen Ethyl Alcohol mg/dL COVID-19 Eval Order SARS-CoV-2, RNA, NAAT 06/27/20 06/27/20 06/27/20 14:29 16:43 16:43 WBC RBC Hgb Hct MCV MCH MCHC RDW Std Deviation RDW Coeff of Mason Plt Count MPV Immature Gran % (Auto) Neut % (Auto) Lymph % (Auto) Caroline % (Auto) Eos % (Auto) Baso % (Auto) Neut # (Auto) Lymph # (Auto) Caroline # (Auto) Eos # (Auto) Baso # (Auto) Immature Gran # (Auto) Sodium Potassium Chloride Carbon Dioxide Anion Gap BUN Creatinine Est Cr Clr Drug Dosing Est GFR ( Amer) Est GFR (Non-Af Amer) BUN/Creatinine Ratio Glucose Calcium Total Bilirubin AST ALT Alkaline Phosphatase Troponin I Total Protein Albumin Globulin Albumin/Globulin Ratio TSH HCG, Qual Urine Color Urine Appearance Urine pH Ur Specific [place] Urine Protein Urine Glucose (UA) Urine Ketones Urine Blood Urine Nitrite Urine Bilirubin Urine Urobilinogen Ur Leukocyte Esterase Urine WBC (Auto) Urine RBC (Auto) U Hyaline Cast (Auto) U Epithel Cells (Auto) Urine Bacteria (Auto) Salicylates Urine Opiates Screen Ur Methadone, Qual Acetaminophen Urine Barbiturates Ur Phencyclidine (PCP) U Amphetamin/Meth Scrn MDMA (Ecstasy) Screen U Benzodiazepines Scrn Ur Cocaine Metabolite U Marijuana (THC) Screen Ethyl Alcohol mg/dL < 3.0 COVID-19 Eval Order [facility] SARS-CoV-2, RNA, NAAT NEGATIVE Hospital Course (1) Depressive disorder: The patient was admitted to the [facility] on q15 min checks (behavioral with suicide precautions) for safety. The patient will participate in group, recreational, and milieu therapies and will be offered additional individual and family sessions as clinically appropriate. Additional history will need to be obtain re: her mood and functioning prior to OD. (2) Opiate dependence: reviewed with patient that Suboxone is generally restarted 36 hrs + following last use or with withdrawal symptoms after, often lower dose to ensure not precipitate withdrawal. Clonidine and lomotil prn. Denies symptoms at this time. Will start suboxone 4/1 mg tonight and advance to home dose after 2 doses as tolerated. dosing confirmed with PDMP (Anna Hopson provider). Mental Health & Subst Abuse Tx Slip Box Changer Name of Slip Box Changer: Mauro Phone Number for Slip Box Changer: [phone] Case Management Appointment Comment: [address], [place] [address] Post Discharge Appointments Smoking Cessation Counseling Tobacco Cessation Medication Prescribed at Discharge: Offered & Pt Refused Other #1: Name of Aftercare Appointment: [facility] Phone Number of Aftercare Appointment: [phone] Aftercare Appointment Comment: [address], [address], [place] [address] #2: Name of Aftercare Appointment: Potential D&A Therapy option: [facility] Phone Number of Aftercare Appointment: [phone] Aftercare Appointment Comment: [address], [address], [place] #3: Name of Aftercare Appointment: Potential D&A Therapy option: [facility] Phone Number of Aftercare Appointment: Aftercare Appointment Comment: [address], [place] [address] #4: Name of Aftercare Appointment: [facility] Phone Number of Aftercare Appointment: [phone] Aftercare Appointment Comment: Sami Contact Information Discharge Discharge Address: [facility] [place] [address] Discharge Plan Discharge Items Patient Disposition: Home - Self-Care Reason For Visit: UNSPECIFIED DEPRESSIVE DISORDER Discharge Diagnosis: same Condition on Discharge: Good Activity: Resume your previous activity Non-emergency contact: Primary Care Provider Call non-emergency contact if: you have any medication questions and your symptoms worsen Follow-up/Referrals: PCP,NO [Primary Care Provider] - Diet: Regular Addtl Attending Provider Instructions: SPECIAL CARE INSTRUCTIONS: 1. Follow through with your scheduled aftercare appointments. If unable to keep an appointment, please call to reschedule. 2. Take your medication only as prescribed. Medication should not be changed or stopped without the approval of your doctor. In the event of worsening symptoms or concerns about side effects, contact your doctor immediately. 3. Utilize new healthy coping skills, anger management skills, and stress management skills learned during your hospitalization. Journal feelings and process them with a support person. Identify stressors or situations that may result in relapse, deterioration or inappropriate behaviors and develop a plan to deal with those issues. 4. If your coping skills are ineffective and you are in crisis, contact your outpatient providers for direction. If unable to reach your providers, please call the [facility] CRISIS LINE AT , go to the [facility] walk-in center at [address] [place] [address] [facility], or go to the closest Emergency Room. 5. Avoid alcohol and un-prescribed drugs. 6. You have been provided with the Mental Health Advance Directives Pamphlet for your review. AFTERCARE APPOINTMENTS: * Please call your insurance company prior to your scheduled appointment to confirm your aftercare providers are covered. Take your insurance information to your appointments. WHO TO CALL AND WHEN: Medical Emergencies: For questions or emergencies related to your hospital stay, please contact the Inpatient Behavioral Health Unit at [phone]. A claim clinician is on-call 29/11 for the Behavioral Health Unit for emergencies At any time you feel your situation is an emergency, you may also call 911 immediately. Pending Studies at Discharge: No Stand-Alone Forms: My Mover, Smoking Cessation Medications and DC Order Prescriptions: New buprenorphine-naloxone 8-2 mg film 1 film buccal BID Qty: 1 RF: 0 Discontinued Suboxone tablet 8 mg BID RF: 0 Discharge Orders: Discharge Order (Routine); Ordered 06/29/20 Ordered By: Kenia Mora Admission Data Admit Date/Time: 06/27/20 18:23 Attending Provider: Kenia Mora Admit Provider: Kenia Mora Primary Care Provider: PCP,NO Other Interventions: Discharge Summary Assessment (RN) Last Done: 06/29/20 09:58 PSY Interdisciplinary Discharge Planning Last Done: 06/29/20 11:09 Coding Level of Care Code 43121 D/C day mgmt > 30 min Diagnoses Depressive disorder F32.9 Opiate dependence F11.20
[2020-06-29 23:15] LABS: Cocaine, Urine 6990 ng/mL (<100); Codeine Urine NEGATIVE ng/mL (<50); Hydrocodone Urine NEGATIVE ng/mL (<50); Hydromor Urine NEGATIVE ng/mL (<50); Morphine Urine 2860 ng/mL (<50); Norhydrocodone Conf Ur NEGATIVE ng/mL (<50); Noroxycodone Urine NEGATIVE ng/mL (<50); Oxycodone Urine NEGATIVE ng/mL (<50); Oxymorph Urine NEGATIVE ng/mL (<50)
== END 2020-06-29 11:35 | disposition home or self-care (01) | DRG 881 ==
LOC: ED 12:45 → 3S 18:23